=== PATIENT | female | born 1965 | race Caucasian/White ===

== ENCOUNTER → 2017-05-11 | Outpatient (CLI) | payer BC ==
[2017-05-11 10:43] LABS: HEMATOCRIT 40.1 % (36.0-47.0); HEMOGLOBIN 13.8 g/dL (12.0-15.5); HGB HCT DIFFERENCE 1.3; MEAN CORPUSCULAR HEMOGLOBIN 33.3 pg (27.0-33.4); MEAN CORPUSCULAR HGB CONC 34.5 g/dL (32.0-36.0); MEAN CORPUSCULAR VOLUME 96 fl (80-97); RED BLOOD COUNT 4.16 10^6/uL (3.72-5.28); RED CELL DISTRIBUTION WIDTH 13.7 % (11.5-14.0); WHITE BLOOD COUNT 2.9 10^3/uL (4.0-10.5)
[2017-05-11 11:04] LABS: ANION GAP 8 (5-19); BLOOD UREA NITROGEN 17 mg/dL (7-20); CARBON DIOXIDE 26 mmol/L (22-30); CHLORIDE 107 mmol/L (98-107); CHOLESTEROL 175.39 mg/dL (0-200); CREATININE RESULT 0.83 mg/dL (0.52-1.25); Direct HDL 58 mg/dL (>40); GLUCOSE 89 mg/dL (75-110); POTASSIUM 4.7 mmol/L (3.6-5.0); SODIUM 140.8 mmol/L (137-145); TRIGLYCERIDES 57 mg/dL (<150)
[2017-05-11 11:21] LABS: DIRECT LDL 99 mg/dL (<100)
== END ==
LOC: OD 09:50
DX: F90.9 Attention-deficit hyperactivity disorder, unspecified type (principal); Z79.899 Other long term (current) drug therapy
CPT/HCPCS: 36415; 80048; 80061; 83036; 85027

== ENCOUNTER 2018-10-11 01:29 | Inpatient (IN) | payer BC ==
--- NOTE | 2018-10-11 01:39 | ER Document Report ---
ED GI/ - General Chief Complaint: Abdominal Pain Stated Complaint: ABDOMINAL PAIN Time Seen by Provider: 10/11/18 01:36 Mode of Arrival: Ambulatory Information source: Patient Notes: Patient is a 53-year-old female with a history of small bowel obstruction presents with sudden onset abdominal pain beginning this morning. Patient reports symptoms began in the left lower quadrant and radiate up to the epigastric area, is an aching and cramping sensation in nature, associated with nausea but no vomiting. She reports the symptoms are identical to her previous small bowel obstruction 3 years ago. She reports last bowel movement was 2 days ago and normal, since then she has been able to pass small amount of gas but nothing else. She denies injury, no fevers or chills, no chest pain or shortness of breath. TRAVEL OUTSIDE OF THE [place] IN LAST 30 DAYS: No - HPI Patient complains to provider of: Abdominal pain Onset: This morning Timing/Duration: Sudden Quality of pain: Achy, Cramping Severity at maximum: Severe Severity in ED: Mild Pain Level: 1 Context: Other - Woke up with symptoms Location: LUQ, LLQ, Other - Periumbilical Vaginal bleeding (Compared to normal period): None Menstrual period history: denies: Missed Sexual history: Active Associated symptoms: Nausea Exacerbated by: Denies Relieved by: Denies Similar symptoms previously: Yes Recently seen / treated by doctor: No - Related Data Allergies/Adverse Reactions: peanut Allergy (Severe, Verified 04/23/16 09:32) SWELLING Past Medical History - General Information source: Patient - Social History Smoking Status: Never Smoker Chew tobacco use (# tins/day): No Frequency of alcohol use: None Drug Abuse: None Lives with: Family Family History: Reviewed & Not Pertinent Patient has suicidal ideation: No Patient has homicidal ideation: No - Past Medical History Cardiac Medical History: Reports: None Denies: Hx Coronary Artery Disease, Hx Heart Attack, Hx Hypertension Pulmonary Medical History: Reports: None Denies: Hx Asthma, Hx Bronchitis, Hx COPD, Hx Pneumonia EENT Medical History: Reports: None Neurological Medical History: Reports: None. Denies: Hx Cerebrovascular Accident, Hx Seizures Endocrine Medical History: Reports: None Renal/ Medical History: Reports: None Malignancy Medical History: Reports: None GI Medical History: Reports: Other - History of small bowel obstruction Musculoskeletal Medical History: Reports Hx Arthritis - osteoarthritis Skin Medical History: Reports None Psychiatric Medical History: Reports: None Traumatic Medical History: Reports: None Infectious Medical History: Reports: None Past Surgical History: Reports: Hx Appendectomy, Hx Bowel Surgery - lbo reconstructive surg, Hx Cholecystectomy. Denies: Hx Pacemaker - Immunizations Immunizations up to date: Yes Hx Diphtheria, Pertussis, Tetanus Vaccination: Yes Review of Systems - Review of Systems Constitutional: No symptoms reported EENT: No symptoms reported Cardiovascular: No symptoms reported Respiratory: No symptoms reported Gastrointestinal: See HPI, Abdominal pain, Nausea, Constipation. denies: Diarrhea, Vomiting Genitourinary: No symptoms reported Female Genitourinary: No symptoms reported Musculoskeletal: No symptoms reported Skin: No symptoms reported Hematologic/Lymphatic: No symptoms reported Neurological/Psychological: No symptoms reported -: Yes All other systems reviewed and negative Physical Exam - Vital signs Vitals: Temp Pulse Resp BP Pulse Ox 98.2 F 70 20 118/68 98 10/11/18 01:32 10/11/18 01:32 10/11/18 01:32 10/11/18 01:10/11/18 01:32 Interpretation: Normal - Notes Notes: Patient appears uncomfortable but in no acute distress - General General appearance: Appears well, Alert - HEENT Head: Normocephalic, Atraumatic Eyes: Normal Pupils: PERRL - Respiratory Respiratory status: No respiratory distress Chest status: Nontender Breath sounds: Normal Chest palpation: Normal - Cardiovascular Rhythm: Regular Heart sounds: Normal auscultation Murmur: No - Abdominal Inspection: Normal Distension: No distension Bowel sounds: Normal Tenderness: Tender - Mild tenderness throughout the left and upper abdomen, no rebound or guarding Organomegaly: No organomegaly - Rectal Notes: Deferred - Genitourinary Notes: Deferred - Back Back: Normal, Nontender - Extremities General upper extremity: Normal inspection, Nontender, Normal color, Normal ROM, Normal temperature General lower extremity: Normal inspection, Nontender, Normal color, Normal ROM, Normal temperature, Normal weight bearing. No: Katheryn's sign - Neurological Neuro grossly intact: Yes Cognition: Normal Orientation: AAOx4 [place] Coma Scale Eye Opening: Spontaneous [place] Coma Scale Verbal: Oriented Deon Coma Scale Motor: Obeys Commands [place] Coma Scale Total: 15 Speech: Normal Motor strength normal: LUE, RUE, LLE, RLE Sensory: Normal - Psychological Associated symptoms: Normal affect, Normal mood - Skin Skin Temperature: Warm Skin Moisture: Dry Skin Color: Normal Course - Re-evaluation Re-evalutation: 10/11/18 02:46 Given history, concerning for recurrent small bowel obstruction. Will obtain labs, CT scan, and reassess. 10/11/18 05:31 CT scan shows a small bowel obstruction. Surgery will admit the patient. Patient will have a nasogastric tube inserted. - Vital Signs Vital signs: Temp Pulse Resp BP Pulse Ox 98.2 F 70 20 112/83 98 10/11/18 01:32 10/11/18 01:32 10/11/18 01:32 10/11/18 04:01 10/11/18 04:01 - Laboratory Result Diagrams: 10/11/18 02:05 10/11/18 02:05 Laboratory results interpreted by me: 10/11/18 10/11/18 02:05 02:05 Hgb 15.8 H MCV 98 H MCH 33.7 H Carbon Dioxide 31 H Glucose 124 H - Diagnostic Test Radiology reviewed: Reports reviewed - Consults Dr. Farr Time consulted: 05:32 - will admit Consulted provider: will come to ER Discharge - Discharge Clinical Impression: Small bowel obstruction Abdominal pain Qualifiers: Abdominal location: generalized Qualified Code(s): R10.84 - Generalized abdominal pain Condition: Fair Disposition: ADMITTED INPATIENT Admitting Provider: Surgicalist Unit Admitted: Surgical Floor Referrals: ANTONIO YOST MD [Primary Care Provider] - Follow up as needed
[2018-10-11] MEDS ORDERED: METOCLOPRAMIDE HCL INJ/PF 10 MG/2 ML SDV IV ONE (02:24)
[2018-10-11] MEDS ORDERED: NORMAL SALINE 1000 ML 1,000 ML IV ONE ×3 (02:24→05:35)
[2018-10-11 02:33] LABS: ABSOLUTE LYMPHOCYTES (AUTO) 0.8 10^3/uL (0.5-4.7); ABSOLUTE MONOCYTES (AUTO) 0.3 10^3/uL (0.1-1.4); ABSOLUTE NEUT (AUTO) 4.4 10^3/uL (1.7-8.2); BASOPHILS % (AUTO) 0.4 % (0-2); EOSINOPHILS % (AUTO) 0.2 % (0-6); HEMATOCRIT 46.1 % (36.0-47.0); HEMOGLOBIN 15.8 g/dL (12.0-15.5); LYMPHOCYTES % (AUTO) 15.2 % (13-45); MEAN CORPUSCULAR HEMOGLOBIN 33.7 pg (27.0-33.4); MEAN CORPUSCULAR HGB CONC 34.3 g/dL (32.0-36.0); MEAN CORPUSCULAR VOLUME 98 fl (80-97); MONOCYTES % (AUTO) 6.2 % (3-13); PLATELET COUNT 198 10^3/uL (150-450); RED CELL DISTRIBUTION WIDTH 12.8 % (11.5-14.0); TOTAL CELLS COUNTED % (AUTO) 100 %; WHITE BLOOD COUNT 5.6 10^3/uL (4.0-10.5)
[2018-10-11 02:46] LABS: ALANINE AMINOTRANSFERASE 16 U/L (9-52); ALBUMIN 4.4 g/dL (3.5-5.0); ALKALINE PHOSPHATASE 64 U/L (38-126); ANION GAP 7 (5-19); ASPARTATE AMINO TRANSFERASE 28 U/L (14-36); BILIRUBIN,DIRECT 0.2 mg/dL (0.0-0.4); BILIRUBIN,TOTAL 0.6 mg/dL (0.2-1.3); BLOOD UREA NITROGEN 20 mg/dL (7-20); CALCIUM 9.9 mg/dL (8.4-10.2); CARBON DIOXIDE 31 mmol/L (22-30); CHLORIDE 105 mmol/L (98-107); GLUCOSE 124 mg/dL (75-110); LIPASE 76.9 U/L (23-300); POTASSIUM 4.1 mmol/L (3.6-5.0); SODIUM 143.1 mmol/L (137-145); TOTAL PROTEIN 7.5 g/dL (6.3-8.2)
--- NOTE | 2018-10-11 04:40 | RADIOLOGY REPORT (SQ) ---
EXAM DESCRIPTION: CT ABDOMEN PELVIS WITH IV CONTRAST COMPLETED DATE/TME: 10/11/2018 00:00 CLINICAL HISTORY: 53 years, Female, Abdominal pain COMPARISON: 04/22/2016 TECHNIQUE: Axial CT images of the abdomen and pelvis were obtained after the administration of IV contrast. Images stored on PACS. All CT scanners at this facility use dose modulation, iterative reconstruction, and/or weight based dosing when appropriate to reduce radiation dose to as low as reasonably achievable (ALARA). [facility]: Dose Right [facility]: CareDose [facility]: Dose Right [facility]: Teradose 4D [facility]: Smart Technologies LIMITATIONS: None. FINDINGS: Lung bases are clear. Cholecystectomy. The liver, pancreas, spleen, and adrenal glands are unremarkable. Both kidneys appear normal with no evidence of hydronephrosis. There is a trace amount of free fluid. There is no free air. The abdominal aorta is normal in caliber. There is no lymphadenopathy. The stomach is distended. There are postsurgical changes to the ventral abdomen with dilatation of the small bowel which measures up to 3.6 cm in diameter. A transition point is along the right side of the abdomen (axial image 51). The appendix is not uniquely identified. The colon is incompletely distended. Hysterectomy. The urinary bladder is unremarkable. There are no lytic or blastic bone lesions. IMPRESSION: Small bowel obstruction with the transition point along the right side of the abdomen TECHNICAL DOCUMENTATION: Quality ID # 436: Final reports with documentation of one or more dose reduction techniques (e.g., Automated exposure control, adjustment of the mA and/or kV according to patient size, use of iterative reconstruction technique) copyright 2011 [employer]- All Rights Reserved
[2018-10-11] MEDS ORDERED: MORPHINE SULFATE 10 MG/ML INJ IV ONE (05:34)
[2018-10-11] MEDS ORDERED: LORAZEPAM INJ 2 MG/1 ML VIAL IV ONE (06:21)
[2018-10-11] MEDS ORDERED: LIDOCAINE 2% VISCOUS SOLN 20 ML UDCUP PO ONE (07:26)
--- NOTE | 2018-10-11 07:39 | PDOC H&P ---
History of Present Illness Admission Date/PCP: 10/11/18 05:42 ANTONIO YOST MD Patient complains of: Abdominal pain nausea vomiting History of Present Illness: SAGE FIELD is a 53 year old female Presents to the emergency department at [facility] via ground rescue complaining of a 2-day history of abdominal pain crampy, associated with nausea and vomiting. She was evaluated in the emergency department found to have a minimally distended abdomen, normal labs, and a CT scan of the abdomen and pelvis showing findings consistent with a small bowel obstruction. Surgery was consulted and the patient was advised admission, for initially nonoperative management, possible exploratory laparotomy if no clinical improvement. Patient's relevant past history is significant for 4 previous laparotomies, 2 at the [facility], and one in [place]. The most recent exploratory laparotomy included lysis of adhesions, short segment small bowel ileal resection by Dr. Abdelrahman Kraus April, at [facility]. 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 Colon was pexed into a more anatomic configuration and a 5 cm segment of ileum resected. She did well from that operation and since then has had no significant complications. She does have chronic constipation and has been on a variety of diets and vinj-lyz-oijyryl medications. Past Medical History Cardiac Medical History: Reports: None Denies: Coronary Artery Disease, Myocardial Infarction, Hypertension Pulmonary Medical History: Reports: None Denies: Asthma, Bronchitis, Chronic Obstructive Pulmonary Disease (COPD), Pneumonia EENT Medical History: Reports: None Neurological Medical History: Reports: None Denies: Seizures Endocrine Medical History: Reports: None Renal/ Medical History: Reports: None Malignancy Medical History: Reports: None GI Medical History: Reports: Other - History of small bowel obstruction Musculoskeltal Medical History: Reports: Arthritis - osteoarthritis Skin Medical History: Reports: None Psychiatric Medical History: Reports: None Traumatic Medical History: Reports: None Hematology: Denies: Anemia Infectious Medical History: Reports: None Past Surgical History Past Surgical History: Previous exploratory laparotomies x4 as described above Past Surgical History: Reports: Appendectomy, Cholecystectomy, Tonsillectomy, Tubal Ligation Denies: Pacemaker Social History Lives with: Family Smoking Status: Never Smoker Frequency of Alcohol Use: None Hx Recreational Drug Use: Yes Drugs: None Hx Prescription Drug Abuse: No Family History Family History: Reviewed & Not Pertinent Parental Family History Reviewed: Yes Children Family History Reviewed: Yes Sibling(s) Family History Reviewed.: Yes Medication/Allergy Home Medications: Azelastine HCl [Astelin 137 mcg/0.137 mL] 137 mcg NS DAILY 11/28/12 Cetirizine HCl [Zyrtec 10 mg Tablet] 10 mg PO DAILY 11/28/12 Dicyclomine HCl [Bentyl 10 Mg Capsule] 10 mg PO QID 11/28/12 Genistein/Cit Zn Bisgly/Vit D3 [Field Producer-Gstn Capsule] 1 each PO BID 04/23/16 Hydroxyzine Pamoate 25 mg PO TIDP PRN 04/23/16 Omeprazole 40 mg PO DAILY 04/23/16 Naproxen Sodium 550 mg PO BID 04/24/16 Pseudoephedrine HCl [Nasal Decongestant] 120 mg PO BID 04/24/16 Allergies/Adverse Reactions: peanut Allergy (Severe, Verified 04/23/16 09:32) SWELLING Review of Systems Constitutional: PRESENT: as per HPI Eyes: ABSENT: visual disturbances Ears: ABSENT: hearing changes Cardiovascular: ABSENT: chest pain, dyspnea on exertion, edema, orthropnea, palpitations Respiratory: ABSENT: cough, hemoptysis Gastrointestinal: PRESENT: as per HPI Genitourinary: ABSENT: dysuria, hematuria Musculoskeletal: ABSENT: joint swelling Neurological: ABSENT: abnormal gait, abnormal speech, confusion, dizziness, focal weakness, syncope Psychiatric: ABSENT: anxiety, depression, homidical ideation, suicidal ideation Endocrine: ABSENT: cold intolerance, heat intolerance, polydipsia, polyuria Physical Exam Vital Signs: Temp Pulse Resp BP Pulse Ox 98 F 70 14 94/56 L 94 10/11/18 06:01 10/11/18 01:32 10/11/18 06:01 10/11/18 07:01 10/11/18 07:01 Intake & Output 10/10/18 10/11/18 10/12/18 06:59 06:59 06:59 Intake Total 1999 Balance 1999 Weight 57.7 kg General appearance: PRESENT: other - Sleepy; nasogastric tube not in yet; received narcotics earlier this evening Head exam: PRESENT: normocephalic Eye exam: PRESENT: EOMI Mouth exam: PRESENT: dry mucosa Neck exam: PRESENT: full ROM Respiratory exam: PRESENT: clear to auscultation christofer Cardiovascular exam: PRESENT: RRR Pulses: PRESENT: normal carotid pulses, normal radial pulses GI/Abdominal exam: PRESENT: other - Scar midline well-healed; flat abdomen not distended; soft no peritoneal signs no rigidity Rectal exam: PRESENT: deferred Extremities exam: PRESENT: full ROM Musculoskeletal exam: PRESENT: full ROM Neurological exam: PRESENT: other - Sleepy but arouses alert and oriented x4 Psychiatric exam: PRESENT: appropriate affect Skin exam: PRESENT: dry Results Laboratory Results: 10/11/18 02:05 10/11/18 02:05 10/11/18 10/11/18 10/11/18 02:05 02:05 02:30 WBC 5.6 RBC 4.70 Hgb 15.8 H Hct 46.1 MCV 98 H MCH 33.7 H MCHC 34.3 RDW 12.8 Plt Count 198 Seg Neutrophils % 78.0 Lymphocytes % 15.2 Monocytes % 6.2 Eosinophils % 0.2 Basophils % 0.4 Absolute Neutrophils 4.4 Absolute Lymphocytes 0.8 Absolute Monocytes 0.3 Absolute Eosinophils 0.0 Absolute Basophils 0.0 Sodium 143.1 Potassium 4.1 Chloride 105 Carbon Dioxide 31 H Anion Gap 7 BUN 20 Creatinine 0.75 Est GFR ( Amer) > 60 Est GFR (Non-Af Amer) > 60 Glucose 124 H Lactic Acid 0.8 Calcium 9.9 Total Bilirubin 0.6 AST 28 ALT 16 Alkaline Phosphatase 64 Total Protein 7.5 Albumin 4.4 Lipase 76.9 Impressions: Abdomen/Pelvis CT 10/11/18 00:00 IMPRESSION: Small bowel obstruction with the transition point along the right side of the abdomen TECHNICAL DOCUMENTATION: Quality ID # 436: Final reports with documentation of one or more dose reduction techniques (e.g., Automated exposure control, adjustment of the mA and/or kV according to patient size, use of iterative reconstruction technique) copyright 2011 [employer]- All Rights Reserved Assessment & Plan - Diagnosis (1) Small bowel obstruction Is this a current diagnosis for this admission?: Yes (2) History of exploratory laparotomy Is this a current diagnosis for this admission?: Yes Plan: Impression: Recurrent small bowel obstruction in thin white female with previous history of small bowel obstructions related to adhesions, internal hernia, and incomplete colonic fixation; currently patient has no clinical evidence of an acute abdomen, I does not require emergent exploration now. Recommendations: 1. Admit, IV fluids, nasogastric decompression, n.p.o. 2. We will follow patient clinically, she does not improve based on symptoms, GI function, and gas pattern on x-ray, she may require exploratory laparotomy. This was explained to her and her familiar with the treatment recommendations. - Time Time Spent: 30 to 50 Minutes Critical Time spent with patient: 15-24 minutes Medications reviewed and adjusted accordingly: Yes Anticipated discharge: Home - Inpatient Certification Based on my medical assessment, after consideration of the patient's com orbidities, presenting symptoms, or acuity I expect that the services needed warrant INPATIENT care.: Yes I certify that my determination is in accordance with my understanding of Medicare's requirements for reasonable and necessary INPATIENT services [42 CFR 412.3e].: Yes Medical Necessity: Need For IV Fluids, Need for Pain Control, Need for IV Antibiotics, Need for Surgery
[2018-10-11] MEDS: FAMOTIDINE INJ/PF 20 MG/2 ML SDV IV SCH ×2 (10:01→21:59)
[2018-10-11] MEDS: KETOROLAC TROMETHAMINE INJ/PF 30 MG/1 ML SDV IV PRN ×2 (18:03→23:41)
[2018-10-11] MEDS ORDERED: PHENOL/SODIUM PHENOLATE 100 SPRAY/177 ML BOTTLE ONE (21:45)
--- NOTE | 2018-10-12 09:14 | PDOC PROGRESS REPORT ---
Subjective Progress Note for:: 10/12/18 Reason For Visit: SMALL BOWEL OBSTRUCTION Being seen for follow-up exam. Is being seen for follow-up exam. Was admitted yesterday with recurrent small bowel obstruction. NG tube was placed. The patient without abdominal complaints denies passing any flatus as any bloating since the NG tube has been placed. Physical Exam Vital Signs: Temp Pulse Resp BP Pulse Ox 98.6 F 57 L 16 98/57 L 96 10/12/18 07:51 10/12/18 07:51 10/12/18 07:51 10/12/18 07:51 10/12/18 07:51 Intake & Output 10/11/18 10/12/18 10/13/18 06:59 06:59 06:59 Intake Total 2000 1000 Output Total 550 Balance 2000 450 Weight 57.7 kg 57 kg GI/Abdominal exam: PRESENT: hyperactive bowel sounds, soft - Her abdomen is soft it is nontender to palpation in all 4 quadrants this hyperactive bowel sounds. Peritoneal signs. Results Laboratory Results: 10/11/18 02:05 10/11/18 02:05 Impressions: Abdomen/Pelvis CT 10/11/18 00:00 IMPRESSION: Small bowel obstruction with the transition point along the right side of the abdomen TECHNICAL DOCUMENTATION: Quality ID # 436: Final reports with documentation of one or more dose reduction techniques (e.g., Automated exposure control, adjustment of the mA and/or kV according to patient size, use of iterative reconstruction technique) copyright 2011 [employer]- All Rights Reserved Assessment & Plan - Diagnosis (1) Small bowel obstruction Is this a current diagnosis for this admission?: Yes - Plan Summary Plan Summary: Impression. Patient currently is without IV fluids. Start IV normal saline with 20 KCl per liter. To new NG suction. Await and abdominal series. Discussed TPN with the pharmacist will start that today. Only since she remains nontender would give a maximum trial of nonoperative therapy for her recurrent small bowel obstruction. After abdominal series have been reviewed make a decision about small bowel series.
[2018-10-12] MEDS: PHENOL/SODIUM PHENOLATE 100 SPRAY/177 ML BOTTLE PO PRN ×3 (09:31→21:39)
[2018-10-12] MEDS: POTASSI CL 20 MEQ/D5-1/2NS 1L 1,000 ML IV PRN ×2 (09:57→18:15)
[2018-10-12] MEDS: FAMOTIDINE INJ/PF 20 MG/2 ML SDV IV SCH ×2 (10:03→21:39)
[2018-10-12] MEDS: KETOROLAC TROMETHAMINE INJ/PF 30 MG/1 ML SDV IV PRN ×3 (10:04→23:43)
--- NOTE | 2018-10-12 11:51 | RADIOLOGY REPORT (SQ) ---
EXAM DESCRIPTION: ACUTE ABDOMEN SERIES COMPLETED DATE/TIME: 10/12/2018 11:40 am REASON FOR STUDY: interval change COMPARISON: None. NUMBER OF VIEWS: Three views. TECHNIQUE: Frontal chest, supine abdomen and upright/decubitus abdomen radiographic images acquired. LIMITATIONS: None. FINDINGS: CHEST: Lungs clear of infiltrates. FREE AIR: None. No abnormal gas collections. BOWEL GAS PATTERN: Nonobstructive pattern. No dilated loops or air fluid levels. CALCIFICATIONS: No suspicious calcifications. HARDWARE: An NG tube is in the gastric fundus. SOFT TISSUES: No gross mass or suggestion of organomegaly. BONES: No acute fracture. No worrisome bone lesions. OTHER: No other significant finding. IMPRESSION: NO RADIOGRAPHIC EVIDENCE FOR ACUTE ABDOMINAL DISEASE. TECHNICAL DOCUMENTATION: JOB ID: [id number] [employer]- All Rights Reserved Reading location - IP/workstation name: [email or web address]
[2018-10-12] MEDS ORDERED: AMINO ACIDS 4.25 %/DEXTROSE 5% 1,000 ML IV SCH (18:00)
[2018-10-12] MEDS ORDERED: FAT EMULSIONS 250 ML IV SCH (18:00)
[2018-10-12] MEDS: AMINO ACIDS 4.25 %/DEXTROSE 5% 1,000 ML IV SCH (18:15)
[2018-10-13] MEDS: FAMOTIDINE INJ/PF 20 MG/2 ML SDV IV SCH ×2 (09:52→21:14)
[2018-10-13] MEDS: POTASSI CL 20 MEQ/D5-1/2NS 1L 1,000 ML IV PRN ×2 (13:14→21:53)
--- NOTE | 2018-10-13 16:56 | PDOC PROGRESS REPORT ---
Subjective Progress Note for:: 10/13/18 Subjective:: This is a 53-year-old female with a small bowel obstruction. She is status post NG decompression. She began passing flatus yesterday and her NG tube was removed. She continues to feel well. She has no feeling of bloating. She has had no nausea or vomiting. She continues to pass flatus. She has not yet had a bowel movement. She denies chest pain, shortness of breath, fevers, chills, headache, blurry vision, sore throat, orthostasis. She does report fatigue and malaise. Reason For Visit: SMALL BOWEL OBSTRUCTION Physical Exam Vital Signs: Temp Pulse Resp BP Pulse Ox 99.8 F 82 15 105/64 100 10/13/18 15:24 10/13/18 15:24 10/13/18 15:24 10/13/18 15:24 10/13/18 15:24 Intake & Output 10/12/18 10/13/18 10/14/18 06:59 06:59 06:59 Intake Total 1000 2250 Output Total 550 400 Balance 450 1850 Weight 57 kg 57 kg General appearance: PRESENT: no acute distress, well-developed, well-nourished Head exam: PRESENT: atraumatic, normocephalic Eye exam: PRESENT: EOMI, PERRLA. ABSENT: scleral icterus Mouth exam: PRESENT: moist, neck supple Teeth exam: ABSENT: poor dentation Neck exam: ABSENT: meningismus, tenderness, thyromegaly, tracheal deviation Respiratory exam: PRESENT: clear to auscultation christofer, unlabored. ABSENT: chest wall tenderness, tachypnea, wheezes Cardiovascular exam: PRESENT: RRR Pulses: PRESENT: normal radial pulses Vascular exam: PRESENT: normal capillary refill. ABSENT: pallor GI/Abdominal exam: PRESENT: soft. ABSENT: distended, guarding, rebound, tenderness Extremities exam: ABSENT: clubbing Musculoskeletal exam: ABSENT: deformity Neurological exam: PRESENT: alert, awake, oriented to person, oriented to place, oriented to time, oriented to situation, CN II-XII grossly intact. ABSENT: motor sensory deficit Psychiatric exam: ABSENT: agitated, anxious, depressed Focused psych exam: ABSENT: delusional Skin exam: ABSENT: cyanosis, erythema, jaundice Results Laboratory Results: 10/11/18 02:05 10/11/18 02:05 Impressions: Abdomen/Pelvis CT 10/11/18 00:00 IMPRESSION: Small bowel obstruction with the transition point along the right side of the abdomen TECHNICAL DOCUMENTATION: Quality ID # 436: Final reports with documentation of one or more dose reduction techniques (e.g., Automated exposure control, adjustment of the mA and/or kV according to patient size, use of iterative reconstruction technique) copyright 2011 [employer]- All Rights Reserved Acute Abdomen Series 10/12/18 07:00 IMPRESSION: NO RADIOGRAPHIC EVIDENCE FOR ACUTE ABDOMINAL DISEASE. Status: Image reviewed by me Assessment & Plan - Diagnosis (1) Small bowel obstruction Is this a current diagnosis for this admission?: Yes - Plan Summary Plan Summary: There is a 53-year-old female status post NG decompression for a small bowel obstruction. The patient is doing well today. I have reviewed her KUB, which shows a nonobstructive gas pattern. She continues to pass flatus. She denies nausea or vomiting. I will advance her diet to clear liquids today. Possibly advance to full liquids later today. Ambulate. Aggressive pulmonary toilet.
[2018-10-13] MEDS: AMINO ACIDS 4.25 %/DEXTROSE 5% 1,000 ML IV SCH (17:18)
[2018-10-13] MEDS: KETOROLAC TROMETHAMINE INJ/PF 30 MG/1 ML SDV IV PRN (17:18)
[2018-10-13] MEDS ORDERED: DIPHENHYDRAMINE HCL 50 MG/ML VIAL IV ONE (19:22)
[2018-10-14] MEDS: KETOROLAC TROMETHAMINE INJ/PF 30 MG/1 ML SDV IV PRN ×2 (00:27→06:21)
[2018-10-14] MEDS: POTASSI CL 20 MEQ/D5-1/2NS 1L 1,000 ML IV PRN (06:22)
[2018-10-14 07:22] LABS: ANION GAP 5 (5-19); BLOOD UREA NITROGEN 11 mg/dL (7-20); CALCIUM 8.4 mg/dL (8.4-10.2); CARBON DIOXIDE 23 mmol/L (22-30); CHLORIDE 111 mmol/L (98-107); GLUCOSE 125 mg/dL (75-110)
[2018-10-14] MEDS: FAMOTIDINE INJ/PF 20 MG/2 ML SDV IV SCH (09:57)
[2018-10-14 10:15] VITALS: BP 101/60
--- NOTE | 2018-10-23 20:07 | DISCHARGE SUMMARY E ---
Discharge Summary NAME: SAGE FIELD : 1965 AGE: 53Y ADMITTED: 10/11/2018 DISCHARGED: 10/14/2018 SUMMARY OF HOSPITALIZATION: The patient is a 53-year-old white female, well known to [facility], status post four previous exploratory laparotomies with lysis of adhesions. She was admitted to the surgical service for acute abdominal pain felt secondary to small bowel obstruction. The patient was admitted to the surgical service, kept NPO on IV fluids. She did have nasogastric tube inserted. This provided significant relief. CT scan performed without oral contrast showed possible site of transition of bowel obstruction in the right side of the abdomen. The patient was kept NPO on IV fluids. She did report clinical improvement, remained afebrile, and acute abdominal series showed improvement in her bowel gas pattern. Her nasogastric tube was removed on the 2nd hospital day and she was started on diet. This was advanced and tolerated well. By the 3rd hospital day, she was felt to have received maximum benefit from the hospitalization and was discharged home. FINAL DIAGNOSIS: PARTIAL SMALL BOWEL OBSTRUCTION, RESOLVED BY NONOPERATIVE MANAGEMENT. DISPOSITION: The patient will be discharged home to the care of her family. Followup with [facility] on an as needed basis; she will resume her routine preoperative medications, diet, and activity. DICTATING PHYSICIAN: ELLIE OLIVEIRA M.D. [id number] PHY#: [id number] ID: [id number] JOB#: [id number] ACCT: [id number] cc:ELLIE OLIVEIRA M.D. [facility],
== END 2018-10-14 11:30 | disposition home or self-care (01) | DRG 390 ==
LOC: ER 01:29 → EH 05:42 → 2N 08:19
PROVIDERS: ADMIT Surgery; ATTEND Surgery
PROC: 0D9770Z Drainage of Stomach, Pylorus with Drainage Device, Via Natural or Artificial Opening (ICD-10-PCS; principal; 2018-10-11)
DX: K56.600 Partial intestinal obstruction, unspecified as to cause (principal); K59.09 Other constipation
CPT/HCPCS: 36415; 74022; 74177; 80048; 80053; 83605; 83690; 85025; 87086; 96361; 96374; 96375; 99285; J1200; J1885; J2060; J2270; J2765; J3480; J3490; J7030; S0028

== ENCOUNTER → 2018-11-16 | Outpatient (CLI) | payer BC ==
[2018-11-16 14:46] LABS: ABSOLUTE EOSINOPHILS # (AUTO) 0.1 10^3/uL (0.0-0.6); ABSOLUTE LYMPHOCYTES (AUTO) 1.2 10^3/uL (0.5-4.7); ABSOLUTE MONOCYTES (AUTO) 0.3 10^3/uL (0.1-1.4); ABSOLUTE NEUT (AUTO) 2.3 10^3/uL (1.7-8.2); BASOPHILS % (AUTO) 0.4 % (0-2); HEMATOCRIT 41.7 % (36.0-47.0); HEMOGLOBIN 14.3 g/dL (12.0-15.5); MEAN CORPUSCULAR HGB CONC 34.3 g/dL (32.0-36.0); MEAN CORPUSCULAR VOLUME 96 fl (80-97); MONOCYTES % (AUTO) 8.9 % (3-13); PLATELET COUNT 180 10^3/uL (150-450); RED BLOOD COUNT 4.33 10^6/uL (3.72-5.28); RED CELL DISTRIBUTION WIDTH 12.9 % (11.5-14.0); SEGMENTED NEUTROPHILS % (AUTO) 58.7 % (42-78); TOTAL CELLS COUNTED % (AUTO) 100 %; WHITE BLOOD COUNT 3.9 10^3/uL (4.0-10.5)
[2018-11-16 15:13] LABS: C-REACTIVE PROTEIN 5.4 mg/L (<10.0); URIC ACID 3.5 mg/dL (2.5-7.5)
[2018-11-16 15:30] LABS: ERYTHROCYTE SEDIMENTATION RATE 4 mm/hr (0-30)
[2018-11-18 07:21] LABS: CYCLIC CITRUL PEPTIDE IGG/A AB 5 units (0-19)
== END ==
LOC: OD 13:52
PROVIDERS: ATTEND Physician Assistant
DX: M65.9 Synovitis and tenosynovitis, unspecified (principal)
CPT/HCPCS: 36415; 84443; 84550; 85025; 85652; 86038; 86140; 86200; 86430

== ENCOUNTER → 2019-02-21 | Outpatient (CLI) | payer BC ==
[2019-02-21 14:31] LABS: ABSOLUTE LYMPHOCYTES (AUTO) 1.1 10^3/uL (0.5-4.7); ABSOLUTE MONOCYTES (AUTO) 0.3 10^3/uL (0.1-1.4); BASOPHILS % (AUTO) 0.5 % (0-2); EOSINOPHILS % (AUTO) 0.7 % (0-6); HEMATOCRIT 41.7 % (36.0-47.0); HEMOGLOBIN 14.2 g/dL (12.0-15.5); LYMPHOCYTES % (AUTO) 23.9 % (13-45); MEAN CORPUSCULAR HEMOGLOBIN 32.7 pg (27.0-33.4); MEAN CORPUSCULAR HGB CONC 34.2 g/dL (32.0-36.0); MEAN CORPUSCULAR VOLUME 96 fl (80-97); MONOCYTES % (AUTO) 6.8 % (3-13); PLATELET COUNT 163 10^3/uL (150-450); RED BLOOD COUNT 4.35 10^6/uL (3.72-5.28); SEGMENTED NEUTROPHILS % (AUTO) 68.1 % (42-78); TOTAL CELLS COUNTED % (AUTO) 100 %; WHITE BLOOD COUNT 4.5 10^3/uL (4.0-10.5)
[2019-02-21 14:56] LABS: ALANINE AMINOTRANSFERASE 23 U/L (9-52); ALBUMIN 3.8 g/dL (3.5-5.0); ALKALINE PHOSPHATASE 44 U/L (38-126); ANION GAP 7 (5-19); ASPARTATE AMINO TRANSFERASE 21 U/L (14-36); BILIRUBIN,DIRECT 0.2 mg/dL (0.0-0.4); BILIRUBIN,TOTAL 0.3 mg/dL (0.2-1.3); BLOOD UREA NITROGEN 21 mg/dL (7-20); CALCIUM 9.5 mg/dL (8.4-10.2); CARBON DIOXIDE 28 mmol/L (22-30); CHLORIDE 107 mmol/L (98-107); GLUCOSE 100 mg/dL (75-110); POTASSIUM 4.2 mmol/L (3.6-5.0); SODIUM 141.8 mmol/L (137-145); TOTAL PROTEIN 6.3 g/dL (6.3-8.2)
== END ==
LOC: OD 13:15
PROVIDERS: ATTEND Physician Assistant
DX: Z11.2 Encounter for screening for other bacterial diseases (principal)
CPT/HCPCS: 36415; 80053; 85025; 87070

== ENCOUNTER → 2019-03-29 | Outpatient (CLI) | payer BC ==
--- NOTE | 2019-03-29 14:44 | RADIOLOGY REPORT (SQ) ---
EXAM DESCRIPTION: PARANASAL SINUSES COMPLETED DATE/TIME: 03/29/2019 11:59 am REASON FOR STUDY: ACUTE RECURRENT SINUSITIS, UNSPECIFIED J01.91 ACUTE RECURRENT SINUSITIS, UNSPECIF IED COMPARISON: Paranasal sinuses 11/27/2015 NUMBER OF VIEWS: Four views TECHNIQUE: Images of the paranasal sinuses acquired. LIMITATIONS: None. FINDINGS: ORBITS: No fracture. No foreign body. SINUSES: No mucosal thickening. No air fluid levels. FACIAL BONES: No fracture. OTHER: No other significant finding. IMPRESSION: NO FOREIGN BODY OR FRACTURE. NO PLAIN RADIOGRAPHIC EVIDENCE FOR SINUS DISEASE. TECHNICAL DOCUMENTATION: JOB ID: [id number] [employer]- All Rights Reserved Reading location - IP/workstation name: [email or web address]
== END ==
LOC: OD 11:28
PROVIDERS: ATTEND Allergy & Immunology
DX: J01.91 Acute recurrent sinusitis, unspecified (principal)
CPT/HCPCS: 70220